=== PATIENT | female | born 2005 | race Caucasian/White ===

== ENCOUNTER 2024-02-16 08:30 | Emergency (ER) | payer OTHER, MEDICAID ==
[~2024-02-16] VITALS: Ht 154.9 cm; Wt 56.7 kg
[2024-02-16 08:39] VITALS: BP_SYST 124; PULSE 85; RESP 22; TEMP 98.3; O2SAT 98
[2024-02-16 09:34] VITALS: BP_SYST 124; PULSE 85; RESP 22; TEMP 98.3; O2SAT 98
== END 2024-02-16 09:33 | disposition home or self-care (01) ==
LOC: SED 08:30
DX: S09.90XA Unspecified injury of head, initial encounter (principal); R42 Dizziness and giddiness; R11.0 Nausea; V89.0XXA Person injured in unspecified motor-vehicle accident, nontraffic, initial encounter; Y93.89 Activity, other specified; Y92.89 Other specified places as the place of occurrence of the external cause; Y99.8 Other external cause status
CPT/HCPCS: 70450-TC; 81025; 99284